=== PATIENT | male | born 1995 | race African-American/Black ===

== ENCOUNTER 2020-12-26 11:33 | Emergency (ER) | payer MEDICAID ==
[~2020-12-26] VITALS: Ht 188 cm; Wt 91.0 kg
[2020-12-26] MEDS ORDERED: LORAZEPAM 2MG/ML CPJ IV ONE (11:45)
[2020-12-26] MEDS ORDERED: SODIUM CHLORIDE 0.9% 1,000 ML IV ONE (11:45)
[2020-12-26] MEDS ORDERED: LEVETIRACETAM 1000MG PREMIX 100 ML IV ONE (11:45)
[2020-12-26 12:20] LABS: BASOPHILS % 0.6 % (0.0-2.0); EOSINOPHILS % 2.8 % (0.0-5.0); HEMATOCRIT. 43.9 % (42.0-52.0); HEMOGLOBIN. 14.8 g/dL (14.0-18.0); LYMPHOCYTES % 29.7 % (20.0-50.0); MEAN CORPUSCULAR HEMOGLOBIN 31.7 pg (28.0-32.0); MEAN CORPUSCULAR VOLUME 94.1 fL (80.0-94.0); MEAN PLATELET VOLUME 6.9 fl (7.4-10.4); MONOCYTES % 9.3 % (2.0-8.0); NEUTROPHILS % 57.6 % (40.0-76.0); PLATELET 267 x1000/uL (130-400); RED BLOOD CELL COUNT 4.66 mill/uL (4.7-6.1); RED CELL DISTRIBUTION WIDTH 14.8 % (11.6-14.6)
[2020-12-26 12:28] LABS: CHLORIDE 101 mEq/L (98-107)
[2020-12-26 12:33] LABS: ETHANOL BLOOD < 10 mg/dL
[2020-12-26 12:38] LABS: CREATINE KINASE 586 IU/L (39-308)
[2020-12-26 15:32] VITALS: BP 142/101
== END 2020-12-26 15:40 | disposition left against medical advice (07) ==
LOC: ER 11:33 → CANRESERV 15:31 → ENRESERV 15:31 → CANBEDREQ 15:39 → ER 15:40
DX: R56.9 Unspecified convulsions (principal)
CPT/HCPCS: 36415; 70450; 71045; 80053; 80320; 82550; 82962; 83735; 85025; 93005; 96365; 96375; 99285; J1953; J2060; J7030; G0480